=== PATIENT | female | born 2000 | race African-American/Black ===

== ENCOUNTER 2024-03-29 14:04 | Emergency (ER) | payer OTHER ==
[~2024-03-29] VITALS: Ht 177.8 cm; Wt 131.0 kg
[2024-03-29 15:35] LABS: BASO # 0.1 10^3/uL (0.0-0.2); BASO % 0.8 % (0.0-1.0); EOS # 0.2 10^3/uL (0.0-0.5); EOS % 3.1 % (0.0-3.0); HEMOGLOBIN 12.1 g/dl (12.0-15.5); LYMPH # 2.5 10^3/uL (1.5-5.0); LYMPH % 38.9 % (24.0-44.0); MEAN CORPUSCULAR HEMOGLOBIN 22.8 pg (27.0-33.0); MEAN CORPUSCULAR VOLUME 73.4 fl (80.0-96.0); MONO # 0.6 10^3/uL (0.0-0.8); MONO % 9.4 % (2.0-8.0); NEUTROPHILS # 3.1 10^3/uL (1.5-8.5); NEUTROPHILS % 47.5 % (36.0-66.0); PLATELET COUNT, AUTOMATED 212 10^3/uL (150-450); RED BLOOD COUNT 5.31 10^6/uL (4.00-5.40); WHITE BLOOD COUNT 6.5 10^3/uL (4.0-10.0)
[2024-03-29 16:01] LABS: BLOOD UREA NITROGEN 8 MG/DL (9-23); CALCIUM LEVEL 9.7 MG/DL (8.5-10.1); CARBON DIOXIDE LEVEL 28 MMOL/L (20-31); CHLORIDE LEVEL 108 MMOL/L (98-107); CREATININE FOR GFR 0.68 MG/DL (0.55-1.30); GLOMERULAR FILTRATION RATE > 60.0 (>60); GLUCOSE, FASTING 74 MG/DL (60-100); HCG, SERUM QUANTITATIVE 17.6 MIU/ML (<4.2); SODIUM LEVEL 140 MMOL/L (136-145)
[2024-03-29 20:14] VITALS: BP 136/84; TEMP 98.5; O2SAT 99
[2024-03-29 21:10] LABS: GC DNA AMPLIFICATION NEGATIVE (NEGATIVE)
== END 2024-03-29 20:16 | disposition home or self-care (01) ==
LOC: M ED 14:04
DX: O20.0 Threatened abortion (principal); O99.511 Diseases of the respiratory system complicating pregnancy, first trimester; J45.909 Unspecified asthma, uncomplicated; Z3A.00 Weeks of gestation of pregnancy not specified

== ENCOUNTER 2024-12-27 16:51 | Emergency (ER) | payer OTHER ==
[~2024-12-27] VITALS: Ht 175.3 cm; Wt 130.5 kg
[2024-12-27 16:53] VITALS: TEMP 98.6
[2024-12-27 18:15] LABS: KETONE, URINE AUTO RFX TRACE mg/dL (NEGATIVE); LEUKOCYTE ESTERASE UR AUTO RFX NEGATIVE (NEGATIVE); MUCUS, URINE RFX SMALL (NEGATIVE); NITRITE, URINE AUTO RFX NEGATIVE (NEGATIVE); RBC, URINE AUTO RFX 0 /HPF (0-3); SQUAM EPITHELIAL CELL UR AURFX 1 /HPF (0-6); WBC, URINE AUTO RFX 1 /HPF (0-3)
[2024-12-27 19:50] LABS: BASO # 0.1 10^3/uL (0.0-0.2); BASO % 0.9 % (0.0-1.0); EOS # 0.1 10^3/uL (0.0-0.5); EOS % 2.1 % (0.0-3.0); LYMPH # 2.9 10^3/uL (1.5-5.0); LYMPH % 43.1 % (24.0-44.0); MONO # 0.6 10^3/uL (0.0-0.8); MONO % 9.0 % (2.0-8.0); NEUTROPHILS # 3.0 10^3/uL (1.5-8.5); NEUTROPHILS % 44.6 % (36.0-66.0); PLATELET COUNT, AUTOMATED 194 10^3/uL (150-450)
[2024-12-27 20:10] LABS: ALT/SGPT 39 U/L (7.0-40); AST/SGOT 21 U/L (<34)
[2024-12-27 20:13] LABS: HCG, SERUM QUALITATIVE POSITIVE (NEGATIVE)
[2024-12-27 21:02] LABS: HCG, SERUM QUANTITATIVE 165.5 MIU/ML (<4.2)
[2024-12-27 22:31] VITALS: BP 114/59; O2SAT 100
== END 2024-12-27 22:51 | disposition home or self-care (01) ==
LOC: M ED 16:51
DX: Z32.01 Encounter for pregnancy test, result positive (principal); Z3A.01 Less than 8 weeks gestation of pregnancy; O99.011 Anemia complicating pregnancy, first trimester; O99.331 Smoking (tobacco) complicating pregnancy, first trimester; D64.9 Anemia, unspecified; F17.200 Nicotine dependence, unspecified, uncomplicated; Z87.59 Personal history of other complications of pregnancy, childbirth and the puerperium

== ENCOUNTER 2025-01-16 12:19 | Emergency (ER) | payer OTHER ==
[~2025-01-16] VITALS: Ht 175.3 cm; Wt 129.9 kg
[2025-01-16] MEDS ORDERED: PREN1CHW6 PO (12:38)
[2025-01-16] MEDS: diphenhydrAMINE 50 MG/ML VIAL IV ONE (15:18)
[2025-01-16] MEDS: ACETAMINOPHEN 500 MG TAB PO ONE (15:18)
[2025-01-16 16:47] VITALS: BP 109/72; TEMP 98; O2SAT 97
== END 2025-01-16 16:48 | disposition home or self-care (01) ==
LOC: M ED 12:19
DX: O99.891 Other specified diseases and conditions complicating pregnancy (principal); R51.9 Headache, unspecified; Z87.59 Personal history of other complications of pregnancy, childbirth and the puerperium; Z3A.01 Less than 8 weeks gestation of pregnancy
CPT/HCPCS: 84702; 96374; 99284; J1200

== ENCOUNTER → 2025-02-08 | Outpatient (CLI) | payer OTHER ==
[~2025-02-08] MED LIST: PREN1CHW6 PO
[2025-02-08 15:31] LABS: PLATELET COUNT, AUTOMATED 165 10^3/uL (150-450)
[2025-02-08 15:38] LABS: TOTAL PROTEIN,RANDOM URINE 10.7 MG/DL (0.0-14.0)
[2025-02-08 15:45] LABS: LDH LACTATE DEHYDROGENASE 198 U/L (120-246)
[2025-02-08 15:46] LABS: ALT/SGPT 23 U/L (7.0-40); AST/SGOT 18 U/L (<34); CREATININE FOR GFR 0.64 MG/DL (0.55-1.30); ESTIMATED AVERAGE GLUCOSE 100.0 MG/DL (60-110); GLOMERULAR FILTRATION RATE > 90.0 (>60); GLUCOSE CHALLENGE TEST 1 HOUR 87 MG/DL (LESS THAN 140)
[2025-02-08 16:13] LABS: HIV 1&2 SCREEN NEGATIVE (NEGATIVE)
[2025-02-08 16:20] LABS: Trichomonas vaginalis (AMP) NOT DETECTED (NEGATIVE)
[2025-02-08 16:21] LABS: HEPATITIS C VIRUS ABY INDEX < 0.02 INDEX (<0.8)
[2025-02-08 16:43] LABS: GC DNA AMPLIFICATION NEGATIVE (NEGATIVE)
== END ==
LOC: M PLALAB 09:21
PROVIDERS: ATTEND Obstetrics & Gynecology
DX: Z34.91 Encounter for supervision of normal pregnancy, unspecified, first trimester (principal)

== ENCOUNTER → 2025-02-18 | Outpatient (CLI) | payer OTHER | LOC: M LAB 09:43 | PROVIDERS: ATTEND Family Medicine | DX: Z02.1 Encounter for pre-employment examination (principal) ==

== ENCOUNTER → 2025-02-22 | Outpatient (CLI) | payer OTHER | LOC: M PLALAB 14:56 | PROVIDERS: ATTEND Obstetrics & Gynecology | DX: O09.291 Supervision of pregnancy with other poor reproductive or obstetric history, first trimester (principal); Z13.71 Encounter for nonprocreative screening for genetic disease carrier status; Z13.79 Encounter for other screening for genetic and chromosomal anomalies; O09.211 Supervision of pregnancy with history of pre-term labor, first trimester ==

== ENCOUNTER 2025-03-04 15:42 | Emergency (ER) | payer OTHER ==
[~2025-03-04] VITALS: Ht 175.3 cm; Wt 133.3 kg
[2025-03-04] MEDS ORDERED: ONDA-83 PO (16:00)
[2025-03-04] MEDS ORDERED: ASPI81TA26 PO (16:00)
[2025-03-04 16:31] LABS: BASO # 0.0 10^3/uL (0.0-0.2); BASO % 0.5 % (0.0-1.0); EOS # 0.0 10^3/uL (0.0-0.5); EOS % 0.1 % (0.0-3.0); LYMPH # 2.2 10^3/uL (1.5-5.0); LYMPH % 28.6 % (24.0-44.0); MONO # 0.7 10^3/uL (0.0-0.8); MONO % 8.8 % (2.0-8.0); NEUTROPHILS # 4.8 10^3/uL (1.5-8.5); NEUTROPHILS % 61.7 % (36.0-66.0); PLATELET COUNT, AUTOMATED 168 10^3/uL (150-450)
[2025-03-04 16:35] LABS: KETONE, URINE AUTO RFX TRACE mg/dL (NEGATIVE); LEUKOCYTE ESTERASE UR AUTO RFX NEGATIVE (NEGATIVE); MUCUS, URINE RFX SMALL (NEGATIVE); NITRITE, URINE AUTO RFX NEGATIVE (NEGATIVE); RBC, URINE AUTO RFX 0 /HPF (0-3); SQUAM EPITHELIAL CELL UR AURFX 0 /HPF (0-6); WBC, URINE AUTO RFX 2 /HPF (0-3)
[2025-03-04 16:49] LABS: ALT/SGPT 18 U/L (7.0-40); AST/SGOT 14 U/L (<34); CALCIUM LEVEL 9.0 MG/DL (8.5-10.1); CARBON DIOXIDE LEVEL 24 MMOL/L (20-31); CHLORIDE LEVEL 107 MMOL/L (98-107); CREATININE FOR GFR 0.66 MG/DL (0.55-1.30); GLOMERULAR FILTRATION RATE > 90.0 (>60); POTASSIUM SERUM 4.0 MMOL/L (3.5-5.1); SODIUM LEVEL 140 MMOL/L (136-145)
[2025-03-04 17:38] VITALS: BP 152/80; TEMP 98.2; O2SAT 100
== END 2025-03-04 17:47 | disposition home or self-care (01) ==
LOC: M ED 15:42
DX: O26.892 Other specified pregnancy related conditions, second trimester (principal); R10.20 Pelvic and perineal pain unspecified side; Z3A.13 13 weeks gestation of pregnancy

== ENCOUNTER → 2025-03-08 | Outpatient (CLI) | payer OTHER ==
[~2025-03-08] MED LIST changes: +ASPI81TA26 PO; +ONDA-83 PO
== END ==
LOC: M PLALAB 08:45
PROVIDERS: ATTEND Obstetrics & Gynecology
DX: Z34.82 Encounter for supervision of other normal pregnancy, second trimester (principal); D56.3 Thalassemia minor; Z13.79 Encounter for other screening for genetic and chromosomal anomalies

== ENCOUNTER → 2025-04-07 | Outpatient (REF) | payer OTHER | LOC: M PLALAB 07:38 | PROVIDERS: ATTEND Obstetrics & Gynecology | DX: D56.3 Thalassemia minor (principal) ==

== ENCOUNTER → 2025-04-07 | Outpatient (CLI) | payer OTHER | LOC: M PLALAB 08:16 | PROVIDERS: ATTEND Obstetrics & Gynecology | DX: D56.3 Thalassemia minor (principal) ==

== ENCOUNTER → 2025-04-15 | Outpatient (CLI) | payer OTHER | LOC: M WHC 14:45 | PROVIDERS: ATTEND Obstetrics & Gynecology | DX: Z34.92 Encounter for supervision of normal pregnancy, unspecified, second trimester (principal) ==

== ENCOUNTER → 2025-05-06 | Outpatient (CLI) | payer OTHER ==
[2025-05-06 17:15] LABS: PLATELET COUNT, AUTOMATED 163 10^3/uL (150-450)
[2025-05-06 17:54] LABS: HIV 1&2 SCREEN NEGATIVE (NEGATIVE)
[2025-05-06 18:02] LABS: HEPATITIS C VIRUS ABY INDEX < 0.02 INDEX (<0.8)
[2025-05-06 20:56] LABS: Trichomonas vaginalis (AMP) NOT DETECTED (NEGATIVE)
[2025-05-06 21:21] LABS: GC DNA AMPLIFICATION NEGATIVE (NEGATIVE)
== END ==
LOC: M PLALAB 15:08
PROVIDERS: ATTEND Obstetrics & Gynecology
DX: Z34.80 Encounter for supervision of other normal pregnancy, unspecified trimester (principal)